=== PATIENT | male | born 1935 | race Caucasian/White ===

== ENCOUNTER → 2017-03-17 | Outpatient (CLI) | payer MEDICARE, OTHER ==
[~2017-03-17] MED LIST: AGGRENOX PO; ALBUTEROL17 GM INH; ALPRAZOLAM PO; AMLODIPINE BESY10 MG PO; APRESOLINE PO; ATENOLOL; ATENOLOL-CHLOR1 EACH PO; AUGMENTIN PO; BUDEPRION XL150 MG PO; CELEXA PO; CITALOPRAM HBR40 MG PO; CLOPIDOGREL BIS75 MG PO; COMBIVENT U/D3 M2 INH; DULERA 100 MCG/13 GM INH; FLOVENT DI50 MCG/DIS IH; GLUCOVANCE 2.5/1 TA1 PO; GLYNASE PO; HCTZ PO; HUMALOG100 U/ML; HUMULIN 70/30 V10 ML; HUMULIN 70/30 V10 ML SQ; HUMULIN 70/30 V10 ML SUBQ; HUMULIN 70100 UNIT/1 SUBQ; HYDRALAZINE HCL50 MG PO; IMDUR PO; IMDUR-ER60 M1 PO; IMDUR-ER60 MG DOB; ISOSORB PO; KCL PO; KLOR-CON PO; LASIX PO; LISINOPRIL20 MG PO; LORTAB 7.5-5001 TAB; LORTAB 7.5-5001 TAB PO; LOTREL 10/20 MG1 CAP; LOTREL 10/40 PO; NABUMETONE PO; NEXIUM; NEXIUM PO; NORVASC PO; NORVASC10 MG PO; OMNICEF300 MG PO; OXYCODONE HCL10 MG PO; OXYCONTIN PO; PERCOCET 10/31 UDTA1 PO; PERCOCET 10/3251 TAB PO; PERCOCET10 PO; PLAVIX PO; RANITIDINE HCL150 M1 PO; REGLAN5 MG PO; SPIRIVA18 MCG INH; TEMAZEPAM PO; TENORETIC 100 T1 TAB PO; TENORETIC PO; WELLBUTRIN SR150 MG PO; XANAX0.5 M1 PO; ZANTAC PO; ZITHROMAX PO; ZITHROMAX500 MG PO; ZOCOR; ZOCOR PO
--- NOTE | ~2017-03-17 | MR172 ---
[facility] A Service of [facility] & [facility] RADIOLOGY TEXT RESULTS PATIENT: KAYLA RECIO LOCATION: [facility] : 36 UNIT #: [id number] AGE: [address]: Gerald Richter MD SEX: M ORDER DR: [id number] [facility] [address] [place], [place] [address] [id number] O MR#: [id number] Acc #: [id number] NAME: KAYLA RECIO : 1935 SEX: M STUDY DATE/TIME: 03/17/2017 10:15 UNIT: [facility] ROOM: STUDY DESCRIPTION: MR Thigh Wo Contrast Lt Attending Physician: Gerald Richter M.D. Ordering Physician: Gerald Richter M.D. Primary Care Physician: Chidi Olivares M.D. MRI CENTER REPORT This report is preliminary unless electronic signature is present. EXAM MRI of the left thigh HISTORY 81-year-old male complains of bump upper medial and lower medial thigh x2 months. Intermittent pain in the region. TECHNIQUE Multiplanar multiecho imaging was performed of the left thigh utilizing a high field magnet dedicated protocol. Gel capsules were placed over the area clinical concern within the medial thigh both proximal and distal. FINDINGS The examination demonstrates a large amount of subcutaneous fat tissue. The proximal lesion appears to correspond to a prominent collection of subcutaneous fat but no evidence of an encapsulated lipoma and no atypical features are identified. The distal lesion also appears to correspond to an area of prominent subcutaneous fat but again no discrete lipoma or soft tissue mass lesion is identified. No skin thickening. Thigh musculature appears normal. The visualized femur unremarkable. Visualized neurovascular structures to include the sciatic nerve unremarkable. IMPRESSION The 2 areas of clinical concern within the medial thigh appear to correspond to prominent collections of subcutaneous fat but no discrete lipoma identified and no atypical features identified. No evidence of a true soft tissue mass. Dictated by... Darling Mckenzie M.D. THIS IS AN ELECTRONICALLY VERIFIED REPORT Darling Mckenzie M.D. at 03/19/2017 3:[address] [facility] A Service of [facility] & [facility] RADIOLOGY TEXT RESULTS PATIENT: KAYLA RECIO LOCATION: [facility] : 36 UNIT #: [id number] AGE: [address]: Gerald Richter MD SEX: M ORDER DR: MYRNA/silke TD: 03/19/2017 15:44 JOB #: [id number] MRI CENTER REPORT Page 1 of 1 COPY
== END | disposition home or self-care (01) ==
LOC: CMRI 09:31
DX: R22.42 Localized swelling, mass and lump, left lower limb (principal); M79.652 Pain in left thigh
CPT/HCPCS: 73718